=== PATIENT | male | born 1955 | race Caucasian/White ===

== ENCOUNTER 2021-11-24 03:27 | Emergency (ER) | payer BC, OTHER ==
[2021-11-24 03:42] VITALS: BMI 31.5
[2021-11-24] MEDS ORDERED: DIPHTH,PERTUSS(ACELL),TET 0.5 ML DISP.SYRIN IM ONE ×2 (03:59→04:13)
[2021-11-24 06:19] VITALS: BP 118/89; PULSE 84; TEMP 99.2
== END 2021-11-24 07:51 | disposition home or self-care (01) ==
LOC: JER 03:27
PROC: 3E0234Z Introduction of Serum, Toxoid and Vaccine into Muscle, Percutaneous Approach (ICD-10-PCS; principal; 2021-11-24)
DX: S62.316A Displaced fracture of base of fifth metacarpal bone, right hand, initial encounter for closed fracture (principal); W19.XXXA Unspecified fall, initial encounter; Y92.9 Unspecified place or not applicable
CPT/HCPCS: 70450-TC; 72125-TC; 73070-TC-RT-FY; 73110-TC-RT-FY; 73130-TC-RT-FY; 73562-TC-RT-FY; 73610-TC-LT-FY; 73630-TC-LT; 90715; 99284-25